=== PATIENT | male | born 1975 | race Caucasian/White ===

== ENCOUNTER 2017-07-28 12:13 | Emergency (ER) | payer BC ==
[~2017-07-28] VITALS: Ht 172.7 cm; Wt 77.1 kg
--- NOTE | 2017-07-28 12:26 | NUR ---
PT AMBULATORY TO ER BED 11. HERE FOR EVAL FOR CHEST PAIN. STATES INTERMITTENT AND SUDDEN. LAST ONE WAS WHEN HE WAS AT THE WAITING ROOM SUDDEN SHORT DURATION. PLACED ON MONITOR. NO C/O CHEST PAIN AT THIS TIME. AWAITING MD [email or web address].
--- NOTE | 2017-07-28 12:45 | NUR ---
DR SHANNON AT BEDSIDE FOR EVAL.
--- NOTE | 2017-07-28 12:55 | NUR ---
REFRIGERATION SERVICE INSPECTOR AT BEDSIDE FOR BLOOD DRAW.
[2017-07-28 13:06] LABS: BASOPHILS % (AUTO) 0.6 % (0.0-2.0); EOSINOPHILS # (AUTO) 0.2 /CMM (0.0-0.7); HEMATOCRIT 46 % (39-51); HEMOGLOBIN 15.6 g/dL (13.5-17.5); LYMPHOCYTES # (AUTO) 1.4 /CMM (0.8-4.8); LYMPHOCYTES % (AUTO) 23.4 % (20.0-44.0); MEAN CORPUSCULAR HEMOGLOBIN 32 PG (26.0-33.0); MEAN CORPUSCULAR HGB CONC 34 g/dl (31.0-36.0); MEAN CORPUSCULAR VOLUME 94 fL (80-96); MONOCYTES # (AUTO) 0.4 /CMM (0.1-1.30); MONOCYTES % (AUTO) 6.4 % (2.0-12.0); NEUTROPHILS % (AUTO) 66.6 % (43.0-81.0); PLATELET COUNT (AUTO) 378 /CMM (150-450); RDW COEFFICIENT OF VARIATION 12.4 (11.5-15.0); RED BLOOD CELL COUNT(AUTO) 4.88 MIL/uL (4.5-6.0); WHITE BLOOD COUNT (AUTO) 6.1 K/uL (4.3-11.0)
[2017-07-28 13:16] LABS: CARBON DIOXIDE 27 mmol/L (21-32); CHLORIDE 106 mmol/L (98-107); GLUCOSE 109 mg/dL (74-106); POTASSIUM 4.2 mmol/L (3.5-5.1); SODIUM SERUM 139 mmol/L (136-145); UREA NITROGEN, BLOOD 18 mg/dL (7-18)
[2017-07-28 13:25] LABS: TROPONIN I < 0.017 ng/mL (0.00-0.056)
--- NOTE | 2017-07-28 13:57 | NUR ---
Patient discharged to home in stable condition. Written and verbal after care instructions given. Patient verbalizes understanding of instruction.
[2017-07-28 13:58] VITALS: BP 132/87
== END 2017-07-28 13:58 | disposition home or self-care (01) ==
LOC: ER 12:16
DX: R07.89 Other chest pain (principal); R00.2 Palpitations
CPT/HCPCS: 36415; 71010-TC; 80048-TC; 84484-TC; 85025-TC; A4606; Z7610

== ENCOUNTER 2019-10-02 21:28 | Emergency (ER) | payer BC ==
[~2019-10-02] VITALS: Ht 175.3 cm; Wt 79.4 kg
--- NOTE | 2019-10-02 22:02 | NUR ---
BIBSELF FROM HOME TO ER BED 17. AAOX4. NO RESP DISTRESS NOTED, BREATHING EVEN AND UNLABORED. C/O SORE THROAT. PT REPORTS THAT PAIN STARTED ON SATURDAY AND STARTED ZITHROMAX ON SATURDAY. COMPLETED MEDICATION YESTERDAY W/O ANYU RELIEF. PT REPORTS PAINFUL SWALLOWING, UNABLE TO EAT BUT ABLE TO DRINK. AWAITING MD FOR EVAL.
[2019-10-02] MEDS ORDERED: DEXAMETHASONE SOD PHOSPHATE 10 MG/ML VIAL ONE (22:54)
[2019-10-02] MEDS ORDERED: DEXAMETHASONE SOD PHOSPHATE 4 MG/ML VIAL IM ONE (23:00)
--- NOTE | 2019-10-03 00:11 | NUR ---
IV LINE OBTAINED ON L AC 18G. BLOOD DRAWN AND GIVEN TO HAT CONE INSPECTOR AT BEDSIDE
[2019-10-03 00:15] LABS: BASOPHILS % (AUTO) 0.3 % (0.0-2.0); EOSINOPHILS % (AUTO) 0.2 % (0.0-6.0); HEMATOCRIT 41 % (39-51); HEMOGLOBIN 13.9 g/dL (13.5-17.5); LYMPHOCYTES % (AUTO) 8.5 % (20.0-44.0); MEAN CORPUSCULAR HGB CONC 34 g/dl (31.0-36.0); MEAN CORPUSCULAR VOLUME 92 fL (80-96); MONOCYTES % (AUTO) 8.4 % (2.0-12.0); NEUTROPHILS # (AUTO) 9.4 /CMM (1.8-8.9); NEUTROPHILS % (AUTO) 82.6 % (43.0-81.0); PLATELET COUNT (AUTO) 700 /CMM (150-450); RED BLOOD CELL COUNT(AUTO) 4.47 MIL/uL (4.5-6.0); WHITE BLOOD COUNT (AUTO) 11.3 K/uL (4.3-11.0)
[2019-10-03 00:18] LABS: CALCIUM, SERUM 9.5 mg/dL (8.5-10.1); POTASSIUM 4.1 mmol/L (3.5-5.1)
[2019-10-03] MEDS ORDERED: KETOROLAC TROMETHAMINE INJ 30 MG/ML VIAL IV ONE (00:30)
[2019-10-03] MEDS ORDERED: CLINDAMYCIN 900 MG in IV D5W 100 ML IV ONE (00:30)
[2019-10-03] MEDS ORDERED: CLINDAMYCIN 900 MG/6 ML VIAL ONE (00:33)
[2019-10-03] MEDS ORDERED: KETOROLAC TROMETHAMINE INJ 30 MG/ML VIAL ONE (00:33)
--- NOTE | 2019-10-03 00:40 | NUR ---
TO CT ON WHEELCHAIR
--- NOTE | 2019-10-03 04:18 | NUR ---
Patient discharged to home in stable condition. Written and verbal after care instructions given. Patient verbalizes understanding of instruction.IV removed. Catheter intact and site benign. Pressure and 4x4 applied to site. No bleeding noted. Pt ambulatory with a steady gait
[2019-10-03 04:19] VITALS: BP 127/89
== END 2019-10-03 04:20 | disposition home or self-care (01) ==
LOC: ER 21:34
DX: J36 Peritonsillar abscess (principal); B95.0 Streptococcus, group A, as the cause of diseases classified elsewhere; F10.10 Alcohol abuse, uncomplicated; F17.200 Nicotine dependence, unspecified, uncomplicated; Y90.9 Presence of alcohol in blood, level not specified; Z60.2 Problems related to living alone
CPT/HCPCS: 36415; 70491; 80048; 85025; 87880; 96365; 96372; 96375; 99284; J1100; J1885; J3490 ×2; J7060 ×2; 86403-TC

== ENCOUNTER 2020-06-10 00:51 | Emergency (ER) | payer SELFPAY ==
[~2020-06-10] VITALS: Ht 172.7 cm; Wt 65.8 kg
[2020-06-10 00:51] VITALS: BP 149/106
--- NOTE | 2020-06-10 00:58 | NUR ---
PT AAOX4. AMBULAORY WITH STEADY GAIT. BIBSELF C/O DRINKING A LOT. -SI,-HI. NO ACUTE DISTRESS NOTED. VSS. PLACED ON MONITOR AND PULSE OX. AT BEDSIDE FOR EVAL.
[2020-06-10] MEDS ORDERED: IV NS 0.9% 1,000 ML BAG IV ONE (01:30)
== END 2020-06-10 02:45 | disposition home or self-care (01) ==
LOC: ER 00:52
DX: F10.10 Alcohol abuse, uncomplicated (principal); F43.21 Adjustment disorder with depressed mood; R11.2 Nausea with vomiting, unspecified; Y90.9 Presence of alcohol in blood, level not specified; Z60.2 Problems related to living alone
CPT/HCPCS: 96360; 99283; J7030